=== PATIENT | female | born 1955 | race Caucasian/White ===

== ENCOUNTER 2017-02-04 19:00 | Emergency (ER) | payer BC ==
[2017-02-04 19:23] VITALS: BP 124/66
[2017-02-04] MEDS ORDERED: Amoxicillin/Clavulanate TAB* 875 MG PO ONE (19:46)
[2017-02-04] MEDS ORDERED: Benzonatate CAP* 100 MG PO ONE (19:46)
--- NOTE | 2017-02-04 19:56 | UC ---
Throat Pain/Nasal Tez HPI - HPI Summary HPI Summary: FIVE DAYS OF NASAL CONGESTION SINUS PRESSURE AND LARYNGITIS (LOSS OF VOICE) FOR TWO DAYS. NO FEVER. - History of Current Complaint Chief Complaint: UCRespiratory Stated Complaint: SORE THROAT, AND LOSS OF VOICE Time Seen by Provider: 02/04/17 19:23 Hx Obtained From: Patient Onset/Duration: Gradual Onset, Lasting Days, Still Present Severity: Moderate Associated Signs & Symptoms: Positive: Hoarseness, Sinus Discomfort, Nasal Discharge - Epiglottits Risk Factors Epiglottis Risk Factors: Negative - Allergies/Home Medications Allergies/Adverse Reactions: Allergies Allergy/AdvReac Type Severity Reaction Status Date / Time Sulfa Drugs Allergy Intermediate Hives Verified 05/14/13 09:51 seasonal allergies Allergy Eyes Uncoded 05/14/13 09:51 Itchy/Swollen/Red/Watery Home Medications: Home Medications Albuterol 2.5MG/3ML (0.083%)* [Ventolin 2.5 MG/3 ML NEB.LUNA*] 2.5 mg INH Q4H [History Confirmed 02/04/17] Atenolol TAB* [Tenormin TAB* 25 MG] 12.5 mg PO DAILY 02/04/17 [History Confirmed 02/04/17] Fluticasone Furoate-Vilanterol [Breo Ellipta 200-25 Mcg/INH] 1 inh IN 02/04/17 [ History] Rosuvastatin (NF) [Crestor (NF)] 5 mg PO 1700 02/04/17 [History Confirmed ] PMH/Surg Hx/FS Hx/Imm Hx Previously Healthy: Yes Endocrine History Of: Denies: Diabetes, Thyroid Disease Cardiovascular History Of: Reports: Cardiac Disorders - Aortic aneurysm Denies: Hypertension, Pacemaker/ICD, Congestive Heart Failure Respiratory History Of: Reports: Asthma, Bronchitis Denies: COPD GI/ History Of: Denies: Ulcer - Surgical History Surgical History: Yes Surgery Procedure, Year, and Place: Hysterectomy, Colecystectomy, tonsillectomy - Family History Known Family History: Positive: Respiratory Disease - Social History Occupation: Employed Part-time, Retired Lives: With Family Alcohol Use: Rare Substance Use Type: None Smoking Status (MU): Never Smoked Tobacco - Immunization History Most Recent Tetanus Shot: 2010 Review of Systems Constitutional: Negative Skin: Negative Eyes: Negative ENT: Ear Ache, Nasal Discharge Respiratory: Cough Cardiovascular: Negative Gastrointestinal: Negative Genitourinary: Negative Motor: Negative Neurovascular: Negative Musculoskeletal: Negative Neurological: Negative Psychological: Negative All Other Systems Reviewed And Are Negative: Yes Physical Exam Triage Information Reviewed: Yes Appearance: No Pain Distress, Well-Nourished Vital Signs: Initial Vital Signs Temp 97.3 F 02/04/17 19:17 Pulse 85 02/04/17 19:17 Resp 18 02/04/17 19:17 BP 124/66 02/04/17 19:17 Pulse Ox 96 02/04/17 19:17 Vital Signs Reviewed: Yes Eye Exam: Normal Eyes: Positive: Conjunctiva Clear ENT: Positive: Hearing grossly normal, Pharyngeal erythema, Nasal congestion, TM bulging, TM dull Dental Exam: Normal Neck exam: Normal Neck: Positive: Supple, Nontender, No Lymphadenopathy Respiratory Exam: Other - COUGH Respiratory: Positive: Chest non-tender, Lungs clear, Normal breath sounds, No respiratory distress, No accessory muscle use Cardiovascular Exam: Normal Cardiovascular: Positive: RRR, No Murmur, Pulses Normal Abdominal Exam: Normal Musculoskeletal Exam: Normal Musculoskeletal: Positive: Strength Intact, ROM Intact Neurological Exam: Normal Psychological Exam: Normal Skin Exam: Normal Throat Pain/Nasal Course/Dx - Differential Dx/Diagnosis Differential Diagnosis/HQI/PQRI: Laryngitis, Peritonsillar Abscess, Pharyngitis , Sinusitis, Tonsillitis, URI Provider Diagnoses: SINUSITIS. LARYNGITIS Discharge - Discharge Plan Condition: Stable Disposition: HOME Prescriptions: Amoxicillin/Clavulanate TAB* [Augmentin TAB 875*] 875 mg PO BID #20 tab Benzonatate CAP* [Tessalon 100 MG CAP*] 100 mg PO TID PRN #15 cap PRN Reason: Cough Patient Education Materials: Sinusitis (ED), Laryngitis (ED) Referrals: Juanita Cast MD [Primary Care Provider] -
== END 2017-02-04 19:58 | disposition home or self-care (01) ==
LOC: UCEAST 19:00
DX: J32.9 Chronic sinusitis, unspecified (principal); J04.0 Acute laryngitis; J45.909 Unspecified asthma, uncomplicated; I71.9 Aortic aneurysm of unspecified site, without rupture; Z88.2 Allergy status to sulfonamides; Z87.09 Personal history of other diseases of the respiratory system
CPT/HCPCS: 87651; 99212; A9270-GY; G0463

== ENCOUNTER 2018-01-04 18:06 | Emergency (ER) | payer BC ==
[2018-01-04 18:29] VITALS: BP 121/78
--- NOTE | 2018-01-04 21:42 | UC ---
Coco Ramos Gabriel, scribed for Garfield Natarajan MD on 01/04/18 at 1850 . Throat Pain/Nasal Tez HPI - HPI Summary HPI Summary: This patient is a 62 year old F [place] [facility] [place] chief complaint of laryngitis that began 4 days ago. On 11-13-17 the patient had similar symptoms and they have returned. The patient rates the pain 5/10 in severity. Patient reports sore throat, sinus pressure, and lung pain. Patient denies fever and chills. 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 Onset/Duration: Lasting Days, Still Present Severity: Moderate Pain Intensity: 5 Pain Scale Used: 0-10 Numeric Associated Signs & Symptoms: Positive: Negative - fever and chills, Other - sore throat, sinus pressure, lung pain, - Allergies/Home Medications Allergies/Adverse Reactions: Allergies Allergy/AdvReac Type Severity Reaction Status Date / Time Sulfa (Sulfonamide Allergy Hives Verified 01/04/18 18:29 Antibiotics) seasonal allergies Allergy Eyes Uncoded 05/14/13 09:51 Itchy/Swollen/Red/Watery PMH/Surg Hx/FS Hx/Imm Hx Cardiovascular History: Hypertension, Other Other Cardiovascular History: AAA Respiratory History: Asthma - Surgical History Surgical History: Yes Surgery Procedure, Year, and Place: Hysterectomy, Colecystectomy, tonsillectomy - Family History Known Family History: Positive: Respiratory Disease - Social History Lives: With Family Alcohol Use: Rare Substance Use Type: None Smoking Status (MU): Never Smoked Tobacco - Immunization History Most Recent Tetanus Shot: 2010 Review of Systems Constitutional: Negative - fever and chills ENT: Sore Throat, Sinus Congestion, Sinus Pain/Tenderness, Other - laryngitis Respiratory: Other - lung pain All Other Systems Reviewed And Are Negative: Yes Physical Exam - Summary Physical Exam Summary: VITAL SIGNS: Reviewed. GENERAL: Patient is a well developed and nourished F who is lying comfortable in the stretcher. Patient is not in any acute respiratory distress. HEAD AND FACE: Normocephalic EYES: PERRLA, EOMI x 2. EARS: Hearing grossly intact. MOUTH: post nasal drip NECK: Supple, trachea is midline, no adenopathy, no JVD, no carotid bruit. CHEST: Symmetric, no tenderness at palpation LUNGS: Clear to auscultation bilaterally. No wheezing or crackles. CVS: Regular rate and rhythm, S1 and S2 present, no murmurs or gallops appreciated. ABDOMEN: Soft, non-tender. Bowel sounds are normal. No abdominal abnormal pulsations. EXTREMITIES: Full ROM in all major joints, no edema, no cyanosis or clubbing. NEURO: Alert and oriented x 3. No acute neurological deficits. Speech is normal and follows commands. SKIN: Dry and warm Triage Information Reviewed: Yes Vital Signs: Initial Vital Signs Temp 98.5 F 01/04/18 18:20 Pulse 109 01/04/18 18:20 Resp 16 01/04/18 18:20 BP 121/78 01/04/18 18:20 Pulse Ox 98 01/04/18 18:20 Vital Signs Reviewed: Yes Throat Pain/Nasal Course/Dx - Course Assessment/Plan: The patient was negative for influenza A,B, and strep throat. I discussed all the findings and test results with the patient. Patient was instructed to return to the urgent care or go to ER immediately if any of the symptoms return or worsens. Plan of care was discussed with the patient, and patient understands and agrees. All questions were answered to patient satisfaction. There were no further complaints or concerns. - Differential Dx/Diagnosis Provider Diagnoses: URI Discharge - Sign-Out/Discharge Documenting (check all that apply): Discharge - Discharge Plan Condition: Stable Disposition: HOME Patient Education Materials: Upper Respiratory Infection (DC) Referrals: Juanita Cast MD [Primary Care Provider] - Additional Instructions: Take Ibuprofen or Tylenol for pain or fever Increase your fluid intake Return to the if symptoms worsen - Billing Disposition and Condition Condition: STABLE Disposition: HOME The documentation as recorded by the Coco randolph Gabriel accurately reflects the service I personally performed and the decisions made by me, Garfield Natarajan MD.
== END 2018-01-04 19:40 | disposition home or self-care (01) ==
LOC: UCEAST 18:06
DX: J06.9 Acute upper respiratory infection, unspecified (principal); Z88.2 Allergy status to sulfonamides
CPT/HCPCS: 87502; 87651; 99212; G0463

== ENCOUNTER 2018-01-27 13:53 | Emergency (ER) | payer BC ==
[2018-01-27 14:01] VITALS: BP 130/55
--- NOTE | 2018-01-27 17:51 | UC ---
Juma Ramos Stephanie, scribed for Garfield Natarajan MD on 01/27/18 at 1414 . Headache HPI - HPI Summary HPI Summary: The pt is a 62 y/o F presenting to with c/o LUJAN that occurred this morning when she woke up. The pt states she was at work when she tripped on a desk, fell backwards and hit the back of her head on a concrete wall at 10:35. She denies LOC, nausea or vomiting. 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 Negative: Nausea, Vomiting - Allergies/Home Medications Allergies/Adverse Reactions: Allergies Allergy/AdvReac Type Severity Reaction Status Date / Time Sulfa (Sulfonamide Allergy Hives Verified 01/27/18 14:01 Antibiotics) seasonal allergies Allergy Eyes Uncoded 01/27/18 14:01 Itchy/Swollen/Red/Watery PMH/Surg Hx/FS Hx/Imm Hx Cardiovascular History: Hypertension, Other - AAA Other Cardiovascular History: None Respiratory History: Asthma - Surgical History Surgical History: Yes Surgery Procedure, Year, and Place: Hysterectomy, Colecystectomy, tonsillectomy - Family History Known Family History: Positive: Respiratory Disease - Social History Occupation: Retired Lives: With Family Alcohol Use: Rare Substance Use Type: None Smoking Status (MU): Never Smoked Tobacco Have You Smoked in the Last Year: No - Immunization History Most Recent Tetanus Shot: 2010 Review of Systems Constitutional: Negative Skin: Negative Eyes: Negative ENT: Negative Respiratory: Negative Cardiovascular: Negative Gastrointestinal: Negative Genitourinary: Negative Motor: Negative Neurovascular: Negative Musculoskeletal: Negative Neurological: Headache Psychological: Negative Is Patient Immunocompromised?: No All Other Systems Reviewed And Are Negative: Yes Physical Exam - Summary Physical Exam Summary: VITAL SIGNS: Reviewed. GENERAL: Patient is a well-developed and nourished FEMALE who is lying comfortable in the stretcher. Patient is not in any acute respiratory distress. HEAD AND FACE: No signs of trauma. No ecchymosis, hematomas or skull depressions. No sinus tenderness. EYES: PERRLA, EOMI x 2, No injected conjunctiva, no nystagmus. No photophobia. EARS: Hearing grossly intact. Ear canals and tympanic membranes are within normal limits. MOUTH: Oropharynx within normal limits. NECK: Supple, trachea is midline, no adenopathy, no JVD, no carotid bruit, no c- spine tenderness, neck with full ROM. No meningeal signs, no Kernig's or brudzinskis signs. CHEST: Symmetric, no tenderness at palpation LUNGS: Clear to auscultation bilaterally. No wheezing or crackles. CVS: Regular rate and rhythm, S1 and S2 present, no murmurs or gallops appreciated. ABDOMEN: Soft, non-tender. No signs of distention. No rebound no guarding, and no masses palpated. Bowel sounds are normal. EXTREMITIES: FROM in all major joints, no edema, no cyanosis or clubbing. NEURO: Alert and oriented x 3. No acute neurological deficits. Speech is normal and follows commands. SKIN: Dry and warm GCS: 15 Triage Information Reviewed: Yes Vital Signs: Initial Vital Signs Temp 96.9 F 01/27/18 13:58 Pulse 80 01/27/18 13:58 Resp 18 01/27/18 13:58 BP 130/55 01/27/18 13:58 Pulse Ox 99 01/27/18 13:58 Vital Signs Reviewed: Yes Headache Course/Dx - Course Course Of Treatment: The pt is a 62 y/o F presenting to with c/o LUJAN that occurred this morning when she woke up. The pt states she was at work when she tripped on a desk, fell backwards and hit the back of her head on a concrete wall at 10:35. She denies LOC, nausea or vomiting. Due to lack of CT available at currently, physician will send the pt to the ED for head CT. The pt is hemodynamically stable, alert and oriented x3. - Differential Dx/Diagnosis Differential Diagnosis/HQI/PQRI: Migraine, Sinus Headache Provider Diagnoses: head contusion Discharge - Sign-Out/Discharge Documenting (check all that apply): Discharge - Discharge Plan Condition: Stable Disposition: HOME Patient Education Materials: Contusion in Adults (ED) Referrals: Juanita Cast MD [Primary Care Provider] - Additional Instructions: Patient request head CT which is not available in . Will send to to ED for further assessment. Declined ambulance RETURN TO URGENT CARE FOR ANY WORSENING OR NEW SYMPTOMS. - Billing Disposition and Condition Condition: STABLE Disposition: HOME The documentation as recorded by the Juma randolph Stephanie accurately reflects the service I personally performed and the decisions made by Delgado dunlap Walter, MD.
== END 2018-01-27 14:20 | disposition home or self-care (01) ==
LOC: UCEAST 13:53
DX: S00.03XA Contusion of scalp, initial encounter (principal); W18.09XA Striking against other object with subsequent fall, initial encounter; Y93.9 Activity, unspecified; Y92.9 Unspecified place or not applicable; I10 Essential (primary) hypertension; I71.4 Abdominal aortic aneurysm, without rupture; J45.909 Unspecified asthma, uncomplicated; Z88.2 Allergy status to sulfonamides
CPT/HCPCS: 99211; G0463

== ENCOUNTER 2018-01-27 14:41 | Emergency (ER) | payer BC ==
--- NOTE | 2018-01-27 17:07 | RAD ---
indication: Neck pain one day after a fall COMPARISON: CT cervical spine dated January 11, [address] scan of the brain and c-spine was performed without intravenous contrast enhancement. Contiguous axial sections were obtained from the lung apices through the vertex. BRAIN: The ventricles, cisterns and sulci are within normal limits. No significant focal abnormality or mass effect is seen. The hernandez-white differentiation is adequately maintained. There is no intracranial hemorrhage. No significant bony abnormality is present. The mastoid air cells are appropriately aerated. The visualized paranasal sinuses are clear. C-SPINE: Degenerative changes of the cervical spine include straightening of the normal cervical lordosis at the upper cervical spine. There is loss of intervertebral disc height most severely affecting C5/C6 where there is also marginal osteophyte formation. There is mid-level uncovertebral hypertrophy most severely affecting C5/C6. The vertebral bodies and facet joints are otherwise anatomically aligned. The dens is intact. There is no atlantodental interval widening. There is no acute fracture or dislocation elsewhere. There is no hyperdense material in the cervical canal to indicate hemorrhage. The visualized musculature and soft tissues are normal. There is no gross lymphadenopathy visualized. The visualized portion of the lung apices are clear. IMPRESSION: 1. No calvarial fracture or acute intracranial hemorrhage. 2. Multilevel degenerative changes of the cervical spine most severely affecting C5/C6, slightly progressed when compared to the January 11, 2014 CT examination. There is no acute fracture or dislocation of the cervical spine.
--- NOTE | 2018-01-27 17:25 | ED ---
Head Injury - HPI Summary HPI Summary: Pt here w/ posterior head injury yesterday - fell backward and "saw stars" - no LOC, syncope, dizziness, nausea, vomiting, memory lapse. Has had focal pain in area w/ bump. Took ASA yesterday. Also has some neck pain, paracervical, soreness - denies n/t/w. H/o osteoporosis. 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 Pain Intensity: 5 - Allergies/Home Medications Allergies/Adverse Reactions: Allergies Allergy/AdvReac Type Severity Reaction Status Date / Time Sulfa (Sulfonamide Allergy Hives Verified 01/27/18 14:01 Antibiotics) seasonal allergies Allergy Eyes Uncoded 01/27/18 14:01 Itchy/Swollen/Red/Watery Home Medications: Home Medications Aspirin EC TAB* [Ecotrin EC TAB*] 325 mg PO DAILY PRN 01/27/18 [History Confirmed 01/27/18] Azelastine 0.15% NASAL(NF) [Astepro 0.15% NASAL (NF)] 1 spray NASAL DAILY [History Confirmed 01/27/18] DULoxetine DR CAP* [Cymbalta CAP*] 90 mg PO DAILY 01/27/18 [History Confirmed ] Ibuprofen TAB* [Advil TAB*] 200 - 400 mg PO Q6H PRN 01/27/18 [History Confirmed 01/27/18] LevoCETirizine TAB (NF) [Xyzal TAB (NF)] 5 mg PO DAILY 01/27/18 [History Confirmed 01/27/18] Omeprazole CAP* [Prilosec CAP* 20 MG] 40 mg PO DAILY 01/27/18 [History Confirmed 01/27/18] PMH/Surg Hx/FS Hx/Imm Hx Previously Healthy: Yes Endocrine/Hematology History: Denies: Hx Anticoagulant Therapy, Hx Blood Disorders, Hx Diabetes, Hx Thyroid Disease, Hx Unexplained Bleeding Cardiovascular History: Reports: Other Cardiovascular Problems/Disorders - AAA Denies: Hx Congestive Heart Failure, Hx Hypertension, Hx Pacemaker/ICD Respiratory History: Reports: Hx Asthma Denies: Hx Chronic Obstructive Pulmonary Disease (COPD) Comment Only: Other Respiratory Problems/Disorders - HX PNEUMONIA X YRS AGO GI History: Denies: Hx Ulcer Musculoskeletal History: Reports: Hx Osteoporosis - osteopenia Sensory History: Reports: Hx Cataracts, Hx Contacts or Glasses, Hx Macular Degeneration Denies: Hx Hearing Aid Opthamlomology History: Reports: Hx Cataracts, Hx Contacts or Glasses, Hx Macular Degeneration Psychiatric History: Denies: Hx Panic Disorder - Surgical History Surgery Procedure, Year, and Place: Hysterectomy, Colecystectomy, tonsillectomy Infectious Disease History: No Infectious Disease History: Denies: Hx Clostridium Difficile, Hx Hepatitis, Hx Human Immunodeficiency Virus (HIV), Hx of Known/Suspected MRSA, Hx Shingles, Hx Tuberculosis, Hx Known/ Suspected VRE, Hx Known/Suspected VRSA, History Other Infectious Disease, Traveled Outside the [place] in Last 30 Days - Family History Known Family History: Positive: Respiratory Disease - Social History 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 Lives: With Family Alcohol Use: Rare Hx Substance Use: No Substance Use Type: Reports: None Hx Tobacco Use: No Smoking Status (MU): Never Smoked Tobacco Review of Systems Constitutional: Negative Negative: Fatigue Eyes: Negative Negative: Photophobia, Blurred Vision, Diplopia, Drainage, Erythema ENT: Negative Negative: Epistaxis, Dental Pain Cardiovascular: Negative Negative: Chest Pain Respiratory: Negative Negative: Shortness Of Breath Gastrointestinal: Negative Negative: Vomiting, Nausea Positive: no symptoms reported Positive: Arthralgia, Myalgia Skin: Other - bump on scalp Positive: Headache. Negative: Weakness, Paresthesia, Numbness, Syncope, Slurred Speech Psychological: Normal All Other Systems Reviewed And Are Negative: Yes Physical Exam Triage Information Reviewed: Yes Vital Signs On Initial Exam: Initial Vitals Temp Pulse Resp BP Pulse Ox 96.9 F 78 16 144/100 98 01/27/18 14:54 01/27/18 14:54 01/27/18 14:54 01/27/18 14:54 01/27/18 14:54 Vital Signs Reviewed: Yes Appearance: Positive: Well-Appearing, Pain Distress - mild, Obese Skin: Positive: Warm, Skin Color Reflects Adequate Perfusion, Dry - palpable bump over posterior scalp - mild TTP Head/Face: Positive: Other - as above - no step off, no battlesign, no racoon eyes Eyes: Positive: Normal, EOMI, ROS - no photophobia, Conjunctiva Clear ENT: Positive: Normal ENT inspection, Hearing grossly normal, Pharynx normal, TMs normal - No hemotympanum. Negative: Nasal drainage - No signs of epistaxis Neck: Positive: Supple, Tenderness @ - Paracervical muscles tender to palpation Respiratory/Lung Sounds: Positive: Breath Sounds Present Cardiovascular: Positive: Normal Abdomen Description: Positive: Nontender, Soft Bowel Sounds: Positive: Present Musculoskeletal: Positive: Normal, Strength/ROM Intact Neurological: Positive: Normal, Sensory/Motor Intact, Alert, Oriented to Person Place, Time, CN Intact II-III, Reflexes Intact, Facial Symmetry, Speech Normal Psychiatric: Positive: Normal Diagnostics - Vital Signs Vital Signs Temp Pulse Resp BP Pulse Ox 01/27/18 14:54 96.9 F 78 16 144/100 98 - Laboratory Lab Statement: Any lab studies that have been ordered have been reviewed, and results considered in the medical decision making process. Head Injury Course/Dx Course Of Treatment: CT of the brain and cervical spine are without acute findings. CT cervical spine does reveal chronic changes of arthritis slightly worse than previous imaging. Discussed head injuries with the patient and follow-up care as well as danger signs and symptoms of when to return to the emergency department. Patient agrees with plan. - Diagnoses Provider Diagnoses: Head injury, Cervical strain Discharge - Sign-Out/Discharge Documenting (check all that apply): Discharge - Discharge Plan Condition: Stable Disposition: HOME Patient Education Materials: Head Injury (ED), Cervical Strain (ED) Referrals: Juanita Cast MD [Primary Care Provider] - Additional Instructions: Rest both physically and cognitively for 48 hours - avoid screens (ie. TV, computer, phone, etc), focusing (ie. reading, holding lengthy or in depth conversation), exertion (ie. carrying heavy objects, going upstairs/hills, jogging, etc) and stimulants (ie. caffeine such as chocolate, coffee, tea, soda , alcohol, etc). Stay hydrated and well nourished You may apply ice to the bump on your scalp and take tylenol for pain. Follow-up with PCP Monday for recheck of symptoms. Call Monday to schedule an appointment. *If you develop change in vision, vomiting, dizziness, numbness, weakness, syncope or slurred speech, return to ED - Billing Disposition and Condition Condition: STABLE Disposition: HOME
[2018-01-27 17:34] VITALS: BP 139/92
== END 2018-01-27 17:33 | disposition home or self-care (01) ==
LOC: ED 14:41
DX: S09.90XA Unspecified injury of head, initial encounter (principal); S16.1XXA Strain of muscle, fascia and tendon at neck level, initial encounter; W18.30XA Fall on same level, unspecified, initial encounter; Y93.9 Activity, unspecified; Y92.9 Unspecified place or not applicable; M50.322 Other cervical disc degeneration at C5-C6 level; J45.909 Unspecified asthma, uncomplicated; Z88.2 Allergy status to sulfonamides
CPT/HCPCS: 70450; 72125; 99282

== ENCOUNTER 2018-08-01 17:23 | Emergency (ER) | payer BC ==
--- NOTE | 2018-08-01 17:39 | UC ---
Throat Pain/Nasal Tez HPI - HPI Summary HPI Summary: 63 yo female presents with sinus pain/pressure/congestion, b/l ear pain, post nasal drip, and cough for the last 1.5 weeks. She has been taking ibuprofen which improves her discomfort mildly. 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 Says that she had PNA last year around this time and has a hx of bad asthma. Denies fever, chills, SOB, chest pain. 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 Onset/Duration: Gradual Onset Severity: Moderate Pain Intensity: 7 Pain Scale Used: 0-10 Numeric - Allergies/Home Medications Allergies/Adverse Reactions: Allergies Allergy/AdvReac Type Severity Reaction Status Date / Time Sulfa (Sulfonamide Allergy Hives Verified 08/01/18 17:35 Antibiotics) seasonal allergies Allergy Eyes Uncoded 08/01/18 17:35 Itchy/Swollen/Red/Watery PMH/Surg Hx/FS Hx/Imm Hx Endocrine History: Dyslipidemia Cardiovascular History: Hypertension Respiratory History: COPD, Asthma GI/ History: Gastroesophageal Reflux Psychological History: Anxiety, Depression Other History Of: Negative For: Anticoagulant Therapy - Surgical History Surgical History: Yes Surgery Procedure, Year, and Place: Hysterectomy, Colecystectomy, tonsillectomy - Family History Known Family History: Positive: Respiratory Disease - Social History Occupation: Employed Full-time Lives: With Family Alcohol Use: Rare Substance Use Type: None Smoking Status (MU): Never Smoked Tobacco - Immunization History Most Recent Tetanus Shot: 2010 Review of Systems Constitutional: Negative Skin: Negative Eyes: Negative ENT: Ear Ache, Nasal Discharge, Sinus Congestion, Sinus Pain/Tenderness Respiratory: Cough Cardiovascular: Negative Gastrointestinal: Negative Neurovascular: Negative Neurological: Negative Psychological: Negative All Other Systems Reviewed And Are Negative: Yes Physical Exam - Summary Physical Exam Summary: GENERAL: NAD. WDWN. No pain distress. SKIN: No rashes, sores, lesions, or open wounds. HEENT: Head: AT/NC Eyes: EOM intact. Conjunctiva clear without inflammation or discharge. Ears: Hearing grossly normal. LEFT TM with mild erythema and bulging. No canal edema or drainage. Nose: Nasal mucosa mildly swollen and erythematous with clear discharge. TTP maxillary < frontal sinus. Throat: Posterior oropharynx without exudates, erythema, or tonsillar enlargement. Uvula midline. NECK: Supple. Nontender. No lymphadenopathy. CHEST: CTAB. No r/r/w. No accessory muscle use. Breathing comfortably and in no distress. CV: RRR. Without m/r/g. Pulses intact. NEURO: Alert. PSYCH: Age appropriate behavior. Triage Information Reviewed: Yes Vital Signs: Vital Signs: Temp Pulse Resp BP Pulse Ox 98.5 F 100 18 141/61 98 08/01/18 17:33 08/01/18 17:33 08/01/18 17:33 08/01/18 17:33 08/01/18 17:33 Vital Signs Reviewed: Yes Throat Pain/Nasal Course/Dx - Course Course Of Treatment: Sinusitis. Left otitis media. She is requesting that she not be on PCN as this "does not work for her" - she has taken zpak in the past with good relief of her symptoms. - Differential Dx/Diagnosis Provider Diagnoses: Sinusitis. Left otitis media Discharge - Sign-Out/Discharge Documenting (check all that apply): Patient Departure All imaging exams completed and their final reports reviewed: No Studies - Discharge Plan Condition: Stable Disposition: HOME Prescriptions: Azithromycin TAB* [Zithromax TAB (Z-GENNARO) 250 mg #6 tabs] 2 tab PO .TODAY, THEN 1 DAILY #1 gennaro Patient Education Materials: Sinusitis (ED), Ear Infection (ED) Referrals: Juanita Cast MD [Primary Care Provider] - Additional Instructions: If you develop a fever, shortness of breath, chest pain, new or worsening symptoms - please call your PCP or go to the ED. Your blood pressure was mildly elevated at todays visit. Please see your primary provider within 4 weeks for recheck and re-evaluation. - Billing Disposition and Condition Condition: STABLE Disposition: Home
[2018-08-01 17:44] VITALS: BP 141/61
== END 2018-08-01 17:50 | disposition home or self-care (01) ==
LOC: UCEAST 17:23
DX: J32.9 Chronic sinusitis, unspecified (principal); H66.92 Otitis media, unspecified, left ear; Z88.2 Allergy status to sulfonamides
CPT/HCPCS: 99202; G0463

== ENCOUNTER 2018-10-07 15:53 | Emergency (ER) | payer BC ==
[2018-10-07 16:03] VITALS: BP 100/57
--- NOTE | 2018-10-07 16:21 | UC ---
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 ?: No Onset/Duration: Gradual Onset, Lasting Days - 3 Pain Intensity: 4 Pain Scale Used: 0-10 Numeric Aggravating Factors: Nothing Alleviating Factors: Nothing Associated Signs/Symptoms: Positive: Hearing Loss - Allergies/Home Medications Allergies/Adverse Reactions: Allergies Allergy/AdvReac Type Severity Reaction Status Date / Time Sulfa (Sulfonamide Allergy Hives Verified 10/07/18 16:05 Antibiotics) seasonal allergies Allergy Eyes Uncoded 10/07/18 16:05 Itchy/Swollen/Red/Watery PMH/Surg Hx/FS Hx/Imm Hx Previously Healthy: No Endocrine History: Dyslipidemia Cardiovascular History: Hypertension Respiratory History: Asthma GI/ History: Gastroesophageal Reflux Other History Of: Negative For: Anticoagulant Therapy - Surgical History Surgical History: Yes Surgery Procedure, Year, and Place: Hysterectomy, Colecystectomy, tonsillectomy - Family History Known Family History: Positive: Respiratory Disease - Social History Occupation: Employed Part-time Lives: With Family Alcohol Use: Rare Substance Use Type: None Smoking Status (MU): Never Smoked Tobacco - Immunization History Most Recent Tetanus Shot: 2010 Review of Systems All Other Systems Reviewed And Are Negative: Yes Constitutional: Positive: Negative Skin: Positive: Negative Eyes: Positive: Negative ENT: Positive: Ear Ache, Nasal Discharge, Sinus Congestion Respiratory: Positive: Cough Cardiovascular: Positive: Negative Gastrointestinal: Positive: Negative Genitourinary: Positive: Negative Motor: Positive: Negative Neurovascular: Positive: Negative Musculoskeletal: Positive: Negative Neurological: Positive: Negative Psychological: Positive: Negative Is Patient Immunocompromised?: No Physical Exam Triage Information Reviewed: Yes Appearance: Well-Appearing, No Pain Distress, Well-Nourished Vital Signs: Initial Vital Signs Temp 97.7 F 10/07/18 15:59 Pulse 99 10/07/18 15:59 Resp 16 10/07/18 15:59 BP 100/57 10/07/18 15:59 Pulse Ox 97 10/07/18 15:59 Vital Signs Reviewed: Yes Eye Exam: Normal Eyes: Positive: Conjunctiva Clear ENT Exam: Normal ENT: Positive: Normal ENT inspection, Hearing grossly normal, Pharynx normal, Nasal congestion, TMs normal - right, TM red - left, Uvula midline. Negative: Trismus, Muffled voice, Hoarse voice, Dental tenderness, Sinus tenderness Dental Exam: Normal Neck exam: Normal Neck: Positive: Supple, Nontender, No Lymphadenopathy Respiratory Exam: Normal Respiratory: Positive: Chest non-tender, Lungs clear, Normal breath sounds, No respiratory distress, No accessory muscle use Cardiovascular Exam: Normal Cardiovascular: Positive: RRR, No Murmur, Pulses Normal, Brisk Capillary Refill Musculoskeletal Exam: Normal Musculoskeletal: Positive: Strength Intact, ROM Intact, No Edema Neurological Exam: Normal Neurological: Positive: Alert, Muscle Tone Normal Psychological Exam: Normal Skin Exam: Normal Re-Evaluation - Re-Evaluation First Eval Change: Improved - hearing improved with ear irragation---some erythema remains- Ear Complaint Course/Dx - Course Course Of Treatment: plan is to continue ibuprofen and decongestants should ear pain worsen will start antibiodic - Differential Dx/Diagnosis Provider Diagnosis: Acute effusion of left ear, Hearing loss of left ear due to cerumen impaction Discharge - Sign-Out/Discharge Documenting (check all that apply): Patient Departure All imaging exams completed and their final reports reviewed: No Studies - Discharge Plan Condition: Stable Disposition: HOME Prescriptions: Amoxicillin PO (*) [Amoxicillin 875 MG (*)] 875 mg PO BID #20 tab Patient Education Materials: Decongestant/Expectorant (By mouth), Cerumen Impaction (ED), Earache (ED) Referrals: Juanita Cast MD [Primary Care Provider] - If Needed - Billing Disposition and Condition Condition: STABLE Disposition: Home
== END 2018-10-07 17:00 | disposition home or self-care (01) ==
LOC: UCEAST 15:53
DX: H65.192 Other acute nonsuppurative otitis media, left ear (principal); H61.22 Impacted cerumen, left ear; H91.92 Unspecified hearing loss, left ear; I10 Essential (primary) hypertension; J45.909 Unspecified asthma, uncomplicated; Z88.2 Allergy status to sulfonamides; Z91.048 Other nonmedicinal substance allergy status
CPT/HCPCS: 99213; G0463